=== PATIENT | female | born 1970 | race Caucasian/White ===

== ENCOUNTER 2022-07-09 04:31 | Inpatient (IN) | payer BC, OTHER ==
[2022-07-09] MEDS ORDERED: Neostigmine Methylsulfate 1 MG/ML 5 ML Syringe ONE (08:13)
[2022-07-09] MEDS ORDERED: Succinylcholine 200 MG/10 ML MDV ONE (08:13)
[2022-07-09] MEDS ORDERED: Propofol 200 MG/20 ML SDV ONE (08:13)
[2022-07-09] MEDS ORDERED: Ondansetron 4 MG/2 ML SDV ONE (08:13)
[2022-07-09] MEDS ORDERED: fentaNYL 250 MCG/5 ML SDV ONE ×2 (08:13→09:59)
[2022-07-09] MEDS ORDERED: Glycopyrrolate 0.2 MG/ML 5 ML MDV ONE (08:13)
[2022-07-09] MEDS ORDERED: Rocuronium 50 MG/5 ML Vial ONE ×2 (08:13→11:02)
[2022-07-09] MEDS ORDERED: Dexamethasone 4 MG/ML SDV ONE (08:13)
[2022-07-09] MEDS ORDERED: Bupivacaine 0.5%/EPINEPHrine 1:200,000 50 ML MDV ONE (09:58)
[2022-07-09] MEDS ORDERED: Meropenem 500 MG SDV ONE (09:58)
[2022-07-09] MEDS ORDERED: Lidocaine 1% 50 ML MDV ONE (09:58)
[2022-07-09] MEDS ORDERED: Lactated Ringers 0 ML ONE (11:16)
[2022-07-09] MEDS ORDERED: diphenhydrAMINE 50 MG/ML SDV IVPUSH PRN ×2 (11:28→16:00)
[2022-07-09] MEDS ORDERED: Ondansetron 4 MG/2 ML SDV IVPUSH PRN ×2 (11:28→16:00)
[2022-07-09] MEDS ORDERED: Naloxone 0.4 MG/ML SDV IVPUSH PRN (11:28)
[2022-07-09] MEDS ORDERED: diphenhydrAMINE 25 MG Cap PO PRN (11:28)
[2022-07-09] MEDS ORDERED: Dextrose 5%-Lactated Ringers 1,000 ML IV SCH ×2 (11:30→21:00)
[2022-07-09] MEDS ORDERED: Acetaminophen 500 MG Tab PO ONE (11:30)
[2022-07-09] MEDS ORDERED: Scopolamine 1.5 MG Transdermal Patch TOP SCH (11:30)
[2022-07-09] MEDS ORDERED: Ketamine 500 MG/5 ML MDV IV SCH (12:15)
[2022-07-09] MEDS ORDERED: Ropivacaine 32 ML, dexAMETHasone 8 MG, EPINEPHrine 0.4 MG, Sodium Chloride 0.9% 45.6 ML NERVRT SCH ×4 (12:15)
[2022-07-09] MEDS ORDERED: Ketamine 15 MG in Sodium Chloride 0.9% 19.85 ML IV SCH (12:15)
[2022-07-09] MEDS ORDERED: cefOXitin 2 GM in Sodium Chloride 0.9% 50 ML IV ONE (12:30)
[2022-07-09] MEDS: fentaNYL/Normal Saline 600 MCG/30 ML PCA Vial IV PRN (13:57)
[2022-07-09] MEDS ORDERED: Cyclobenzaprine 10 MG Tab PO PRN (15:48)
[2022-07-09] MEDS ORDERED: Acetaminophen 500 MG Tab PO PRN (16:00)
[2022-07-09] MEDS ORDERED: hydrOXYzine HCL 100 MG/2 ML SDV IM PRN (16:00)
[2022-07-09] MEDS ORDERED: Metoclopramide 10 MG/2 ML SDV IVPUSH PRN (16:00)
[2022-07-09] MEDS ORDERED: Labetalol 20 MG/4 ML Syringe IVPUSH PRN (16:00)
[2022-07-09] MEDS ORDERED: Naloxone 0.4 MG/ML SDV IV PRN (16:00)
[2022-07-09] MEDS ORDERED: Sodium Ferric Gluconate Cmplex 250 MG in Sodium Chloride 0.9% 100 ML IV SCH (17:00)
[2022-07-09] MEDS ORDERED: Pantoprazole 40 MG Vial IVPUSH SCH (20:00)
[2022-07-09] MEDS: Acetaminophen 500 MG Tab PO SCH (20:18)
[2022-07-09] MEDS: Gabapentin 300 MG Cap PO SCH (20:19)
[2022-07-09] MEDS: Heparin Sodium 5,000 Units/ML Vial SUBCUT SCH (20:19)
[2022-07-09] MEDS: cefOXitin 2 GM in Sodium Chloride 0.9% 50 ML IV SCH (21:13)
[2022-07-09] MEDS: MVI, Adult with Vitamin K 10 ML, Thiamine 200 MG, Zinc/Copper/Manganese/Selenium 1 ML i... IV SCH ×4 (21:13)
[2022-07-10] MEDS: cefOXitin 2 GM in Sodium Chloride 0.9% 50 ML IV SCH ×4 (02:37→20:13)
[2022-07-10] MEDS: Acetaminophen 500 MG Tab PO SCH ×3 (04:26→20:10)
[2022-07-10] MEDS ORDERED: Iopamidol 510 MG/ML 50 ML SDV PO ONE (05:27)
[2022-07-10] MEDS ORDERED: Ondansetron 4 MG Tab.DIS PO PRN (08:05)
[2022-07-10] MEDS: Heparin Sodium 5,000 Units/ML Vial SUBCUT SCH ×2 (08:30→20:10)
[2022-07-10] MEDS: Docusate Sodium 100 MG Cap PO SCH ×2 (09:16→22:07)
[2022-07-10] MEDS: Bisacodyl 5 MG Tab PO SCH ×2 (09:16→22:07)
[2022-07-10] MEDS: SCOPOLAMINE PATCH CHECK TOP SCH (09:18)
[2022-07-10] MEDS: fentaNYL/Normal Saline 600 MCG/30 ML PCA Vial IV PRN (10:37)
[2022-07-10] MEDS: Dextrose 5%-Lactated Ringers 1,000 ML IV SCH (11:35)
[2022-07-10] MEDS ORDERED: Sodium Ferric Gluconate Cmplex 250 MG in Sodium Chloride 0.9% 100 ML IV SCH (14:30)
[2022-07-10] MEDS ORDERED: Sodium Chloride 0.9% 400 ML IV ONE (14:30)
[2022-07-10] MEDS: Gabapentin 300 MG Cap PO SCH (22:07)
[2022-07-10] MEDS: MVI, Adult with Vitamin K 10 ML, Thiamine 200 MG, Zinc/Copper/Manganese/Selenium 1 ML i... IV SCH ×4 (22:08)
[2022-07-10] MEDS: Pantoprazole 40 MG Tab.CR PO SCH (22:08)
[2022-07-11] MEDS: Acetaminophen 500 MG Tab PO SCH ×3 (04:50→20:18)
[2022-07-11] MEDS: Heparin Sodium 5,000 Units/ML Vial SUBCUT SCH ×2 (08:56→20:21)
[2022-07-11] MEDS: Docusate Sodium 100 MG Cap PO SCH ×2 (08:57→20:19)
[2022-07-11] MEDS: SCOPOLAMINE PATCH CHECK TOP SCH (08:57)
[2022-07-11] MEDS: Cyclobenzaprine 10 MG Tab PO PRN ×3 (08:57→23:05)
[2022-07-11] MEDS: Bisacodyl 5 MG Tab PO SCH ×2 (08:57→20:20)
[2022-07-11] MEDS: Dextrose 5%-Lactated Ringers 1,000 ML IV SCH ×2 (08:59→19:03)
[2022-07-11] MEDS ORDERED: Cyanocobalamin (Vitamin B12) 1,000 MCG/ML SDV IM ONE (09:00)
[2022-07-11] MEDS: oxyCODONE 5 MG Tab PO PRN ×2 (12:06→19:01)
[2022-07-11] MEDS: Pantoprazole 40 MG Tab.CR PO SCH (20:20)
[2022-07-11] MEDS: Gabapentin 300 MG Cap PO SCH (20:20)
[2022-07-12] MEDS: Acetaminophen 500 MG Tab PO SCH (03:15)
[2022-07-12] MEDS: Dextrose 5%-Lactated Ringers 1,000 ML IV SCH (05:24)
[2022-07-12] MEDS: Heparin Sodium 5,000 Units/ML Vial SUBCUT SCH (07:26)
[2022-07-12] MEDS: Docusate Sodium 100 MG Cap PO SCH (09:34)
[2022-07-12] MEDS: Bisacodyl 5 MG Tab PO SCH (09:34)
[2022-07-12] MEDS: Cyclobenzaprine 10 MG Tab PO PRN (09:49)
== END 2022-07-12 10:49 | disposition home or self-care (01) | DRG 329 ==
LOC: JP.SDS 11:14 → JP.2SS 15:00 → EDSTATUS 15:45
PROVIDERS: ADMIT Surgery; ATTEND Surgery
PROC: 0DS80ZZ Reposition Small Intestine, Open Approach (ICD-10-PCS; principal; 2022-07-09)
PROC: 0DB80ZZ Excision of Small Intestine, Open Approach (ICD-10-PCS; 2022-07-09)
PROC: 0DQ80ZZ Repair Small Intestine, Open Approach (ICD-10-PCS; 2022-07-09)
PROC: 0WQF0ZZ Repair Abdominal Wall, Open Approach (ICD-10-PCS; 2022-07-09)
PROC: 3E0M05Z Introduction of Adhesion Barrier into Peritoneal Cavity, Open Approach (ICD-10-PCS; 2022-07-09)
DX: K95.89 Other complications of other bariatric procedure (principal); K56.2 Volvulus; K56.600 Partial intestinal obstruction, unspecified as to cause; K43.0 Incisional hernia with obstruction, without gangrene; K90.9 Intestinal malabsorption, unspecified; Z98.84 Bariatric surgery status; E53.8 Deficiency of other specified B group vitamins; E55.9 Vitamin D deficiency, unspecified; Z79.890 Hormone replacement therapy; Z79.899 Other long term (current) drug therapy
CPT/HCPCS: 36415; 74240; 74240-26; 80048; 85025; A9270-GY; C9113; J0171; J0330; J0694; J1100; J1644; J2001; J2020; J2185; J2405; J2704; J2710; J2795; J2916; J3010; J3411; J3420; J3490; J7030; J7040; J7120; J7121